=== PATIENT | male | born 1965 | race Caucasian/White ===

== ENCOUNTER 2020-07-25 18:13 | Emergency (ER) | payer BC ==
[~2020-07-25] VITALS: Ht 177.8 cm; Wt 74.8 kg
--- NOTE | 2020-07-25 18:13 | NUR ---
Patient BIBA ALS, transferred to bed 10. Dr. Enriquez and RN are evaluating the patient at bedside.
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
[2020-07-25 18:16] VITALS: BP 97/63
[2020-07-25] MEDS ORDERED: HALOPERIDOL IM 5 MG/ML VIAL IM ONE (18:30)
[2020-07-25] MEDS: NACL 0.9% 2,000 ML IV ONE (18:32)
[2020-07-25] MEDS: HALOPERIDOL IM 5 MG/ML VIAL IVP ONE (18:33)
--- NOTE | 2020-07-25 18:35 | NUR ---
LAB AT BEDSIDE
--- NOTE | 2020-07-25 18:51 | NUR ---
EKG AT BEDSIDE
[2020-07-25 18:57] LABS: BASOPHILS # (AUTO) 0.1 K/uL (0.00-0.22); BASOPHILS % (AUTO) 1.3 % (0.0-2.0); EOSINOPHILS # (AUTO) 0.1 K/uL (0-0.4); EOSINOPHILS % (AUTO) 1.1 % (0.0-4.0); HEMATOCRIT 41.6 % (36-52); LYMPHOCYTES # (AUTO) 1.8 K/uL (2.0-11.5); LYMPHOCYTES % (AUTO) 23.9 % (20.5-51.1); MEAN CORPUSCULAR HEMOGLOBIN 27 pg (27-31); MEAN CORPUSCULAR HGB CONC 34 g/dL (33-37); MEAN CORPUSCULAR VOLUME 80.3 fL (80-94); MONOCYTES # (AUTO) 0.4 K/uL (0.8-1.0); NEUTROPHILS # (AUTO) 5.2 K/uL (1.8-7.7); NEUTROPHILS % (AUTO) 68.7 % (42.2-75.2); PLATELET COUNT (AUTO) 290 K/uL (140-450); RED BLOOD CELL COUNT(AUTO) 5.18 MIL/uL (4.20-6.10); WHITE BLOOD COUNT (AUTO) 7.5 K/uL (4.8-10.8)
--- NOTE | 2020-07-25 19:00 | NUR ---
# 15 FR STRAIGHT Urinary catheter inserted utilizing sterile technique. Immediate return of 100 ml CLEAR YELLOW urine noted. Urine sample collected and sent to lab. Pt tolerated procedure WELL.
--- NOTE | 2020-07-25 19:19 | NUR ---
Martin pablo in [facility] - 07/25/20 at 1920 by [facility] RECIVED REPORT FROM POPEYE MENDEZ, TRANSFER OF CARE.
[2020-07-25 19:20] LABS: ALBUMIN 3.7 g/dL (3.4-5.0); ANION GAP 14.7 (8-16); ASPARTATE AMINOTRANSFERASE 34 U/L (15-37); CARBON DIOXIDE 24.6 mmol/L (21-32); CHLORIDE 103 mmol/L (98-107); CREATININE 0.9 mg/dL (0.6-1.3); FREE T4 (FREE THYROXINE) 1.07 ng/dL (0.76-1.46); GFR ARICAN-AMERICAN 112 mL/min (>90); GLUCOSE 218 mg/dL (74-106); POTASSIUM 3.3 mmol/L (3.5-5.1); SALICYLATE < 2.8 mg/dL (2.8-20.0); SODIUM SERUM 139 mmol/L (136-145); THYROID STIMULATING HORMONE 3.05 uIU/mL (0.34-3.74); TOTAL BILIRUBIN 0.4 mg/dL (0.0-1.0); UREA NITROGEN, BLOOD 7 mg/dL (7-18)
--- NOTE | 2020-07-25 19:20 | NUR ---
REPORT GIVEN TO VANESSA TORRES. TRANSFER OF CARE AT THIS TIME.
--- NOTE | 2020-07-25 19:20 | NUR ---
RECIVED REPORT FROM POPEYE MENDEZ, TRANSFER OF CARE.
[2020-07-25 19:25] LABS: APPEARANCE,URINE CLEAR (CLEAR); BILIRUBIN,URINE NEGATIVE (NEGATIVE); BLOOD, URINE NEGATIVE (NEGATIVE); COLOR,URINE YELLOW (YELLOW); LEUKOCYTE ESTERASE ,URINE NEGATIVE (NEGATIVE); NITRITE, URINE NEGATIVE (NEGATIVE); PH,URINE 5.5 (5.0-9.0); UGLUCOSE 1+ (NEGATIVE)
--- NOTE | 2020-07-25 19:26 | NUR ---
PATIENT TAKEN TO CT VIA GURNEY. EMT WENT WITH NANCIE ANNA. VSS. PATIENT REMAINS NON-VERBAL BUT REACTIVE TO TOUCH. RESPIRATIONS ARE EVEN AND UNLABORED. IV SITE REMAINS PATIENT.
[2020-07-25 19:39] LABS: BARBITURATE, URINE NEGATIVE ng/ml (NEG <=200); BENZODIAZEPINE, URINE NEGATIVE ng/mL (NEG <=200); CANNABINOID, URINE NEGATIVE ng/mL (NEG <=50); COCAINE, URINE NEGATIVE ng/mL (NEG <=300); OPIATE, URINE NEGATIVE ng/mL (NEG <=2000); PHENCYCLIDINE SCREEN,URINE NEGATIVE ng/mL (NEG <=25)
--- NOTE | 2020-07-25 19:45 | NUR ---
PATIENT RETURNED FROM CT VIA [facility].
--- NOTE | 2020-07-25 19:46 | NUR ---
XRAY AT BEDSIDE.
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
--- NOTE | 2020-07-25 20:35 | NUR ---
IV removed, catheter intact and site benign. Applied folded 4x4 gauze and tape to stop bleeding.
--- NOTE | 2020-07-25 20:45 | NUR ---
PATIENT ABLE TO AMBULATE WITH STEADY GAIT TO RESTROOM WITH ASSISTANCE FROM PRIMARY RN. PATIENT STATES, " WHERE IS MY CELL PHONE I NEED TO CALL MY DAUGHTER TO COME PICK ME UP." PATIENT EXPLAINED WHY HE PRESENTED TO ER AND WAS REORIENTED TO SITUATION. ERMD MADE AWARE. VSS.
--- NOTE | 2020-07-25 20:55 | NUR ---
ERICH SPOKE WITH DAUGHTER ABOUT PATIENT'S CONDITION AND EXPLAINED WOULD BE WILLING TO HAVE HIM BE D/C LONG HE HAD A RIDE HOME. PER DAUGHTER SHE WOULD BE PICKING UP FATHER SOON.
[2020-07-25 21:20] VITALS: BP 102/71
--- NOTE | 2020-07-25 21:42 | NUR ---
Patient presented to facility under the influence of Alcohol. Patient is currently ambulatory with steady gait, able to walk unassisted. Positive gag reflex. Alert and oriented. Is not driving self for discharge out of facility. STILL AWAITING DAUGHTER TO PICK HIM UP. PATIENT VSS.
[2020-07-25 22:21] LABS: FREE T4 (FREE THYROXINE) 1.07 ng/dL (0.76-1.46); THYROID STIMULATING HORMONE 3.25 uIU/mL (0.34-3.74)
--- NOTE | 2020-07-25 23:02 | NUR ---
Martin pablo in ED - 07/25/20 at 2303 by RE[facility]UGIO CALLED [facility] FOR UPDATE ON ETA. NO ANSWER.
--- NOTE | 2020-07-25 23:24 | NUR ---
PATIENT STATES DAUGHTERS ARE NOT ANSWERING PHONE. PATIENT IS A &O X4, ABLE TO AMBULATE WITH STEADY GAIT. PATIENT STATES, "CAN I CALL AN UBER HOME INSTEAD, I JUST WANT TO GO HOME TO REST."
--- NOTE | 2020-07-25 23:25 | NUR ---
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
--- NOTE | 2020-07-25 23:28 | NUR ---
Patient discharged with v/s stable. Written and verbal after care instructions given and explained. Patient verbalized understanding. Ambulatory with steady gait. All questions addressed prior to discharge. Advised to follow up with PMD.
== END 2020-07-25 23:28 | disposition home or self-care (01) ==
LOC: MED 18:13
DX: F10.129 Alcohol abuse with intoxication, unspecified (principal); E11.9 Type 2 diabetes mellitus without complications; Y90.8 Blood alcohol level of 240 mg/100 ml or more
CPT/HCPCS: 36415; 70450; 71045; 80053; 80305; 81003; 84439; 84443; 84484; 85025; 93005; 96361; 96374; 99285; G0480; G0482; J1630; J7030